=== PATIENT | female | born 1935 | race Caucasian/White ===

== ENCOUNTER 2016-09-16 21:10 | Inpatient (IN) ==
[2016-09-16] MEDS ORDERED: HYDROmorphone 2 MG/1 ML VIAL IV STA (22:23)
[2016-09-16] MEDS ORDERED: PROMETHAZINE 25 MG/1 ML VIAL IM STA (22:23)
[2016-09-16] MEDS ORDERED: PROMETHAZINE 25 MG/1 ML VIAL ONE (22:26)
[2016-09-16] MEDS ORDERED: HYDROmorphone 2 MG/1 ML VIAL ONE (22:27)
--- NOTE | 2016-09-16 22:31 | Emergency Department Note ---
Yajaira Kwong Hilary, am scribing for, and in the presence of, Ed Carroll MD 21:39 . Carly Kwong Hans, MD, personally performed the services described in this documentation, ascribed by Sushma Gates in my presence, and it is both accurate and complete . Arrival - Arrival Chief Complaint: Fall Stated Complaint: fall ED Nursing Triage Note: Pt brought in by EMS with c/o fall tonight about 1hour DRIER TAKE OFF TENDER. Pt states her left hip is hurting. No bruising or obvious deformity noted. Pt rates pain 8/10. Pt was given 4mg zofran and 100mg fentanyl. Mode of Arrival: Stretcher Limitations: No Limitations Source: Patient, RN Notes Reviewed - History of Present Illness HPI Narrative: Pt is a 81 y/o female brought into the ED via EMS for c/o a fall which onset minutes DRIER TAKE OFF TENDER. Pt states that she was getting ready to take a bath and somehow her feet got twisted up and she tripped and fell onto the floor. She has not walked since the fall due to her left hip hurting. She confirms left hip pain and nausea/vomiting but denies syncope or vertigo. Pt was given 4mg Zofran and 100mg Fentanyl. No other complaints or problems stated in the ED. Onset (ago): minute(s) Consistency: constant Severity: severe Severity scale (1-10): 8 Quality: sharp Review of System - Review of System 12 point system: reviewed and no additional remarkable complaints except as stated - Review of System Constitutional: Present: other. Absent: fever Cardiovascular: Absent: syncope Gastrointestinal: Present: nausea, vomiting Musculoskeletal: Present: leg pain (left hip pain) Medical,Surgical,& Family Hx - Medical History Cardio: History of: Hypertension - Social History Smoking Status: Never smoker Frequency of Alcohol Use: None Type of Drug Use: None Marital Status: Lives With:: Alone Functional capacity: independent ambulation Exam Vital Signs: Vital Signs Temperature 97.5 F L 09/16/16 21:20 Pulse Rate 61 09/16/16 21:20 Respiratory Rate 18 09/16/16 21:20 Blood Pressure 157/60 09/16/16 21:20 O2 Sat by Pulse Oximetry 98 09/16/16 21:20 - General General appearance: alert, in no apparent distress - Head Head exam: Present: atraumatic, normocephalic - Eye Eye exam: Present: normal appearance, PERRL, EOMI - ENT ENT exam: Present: mucous membranes moist, TM's normal bilaterally. Absent: mucous membranes dry - Neck Neck exam: Present: full ROM, trachea midline. Absent: tenderness - Chest Chest inspection: Present: symmetric chest wall rise. Absent: tenderness - Respiratory Respiratory exam: Present: normal lung sounds bilaterally. Absent: respiratory distress - Cardiovascular Cardiovascular exam: Present: regular rate, normal rhythm, normal heart sounds. Absent: murmur, rubs, gallop - Abdominal Exam Abdominal exam: Present: soft, normal bowel sounds. Absent: distention, tenderness - Extremities Exam Extremities exam: Present: full ROM. Absent: tenderness, pedal edema - Back Exam Back exam: Present: full ROM. Absent: tenderness - Neurological Exam Neurological exam: Present: alert, oriented X3, CN II-XII intact. Absent: motor sensory deficit - Psychiatric Psychiatric exam: Present: normal affect, normal mood - Skin Skin exam: Present: warm, dry, intact, normal color. Absent: rash Course Course Narrative: This patient was evaluated in the ER with left hip x-ray and CT head as well as lab work, EKG, and chest x-ray. She had an impacted left femoral neck fracture on her left hip x-ray. CT head was negative. EKG showed normal sinus rhythm. Lab work was unrevealing. I discussed her fracture with Dr. Gagnon who agreed to admit her and asked that she be n.p.o. after midnight with plans for repair of her fracture tomorrow. This patient is also seen by Dr. Canelo Sanchez so a consult was placed on her admission orders for Dr. Sanchez to follow her while in the hospital and Dr. Romero is actually on-call this weekend so we will ask him to assume medical care until Dr. Sanchez returns. Disposition Clinical Impression: Fracture of femoral neck, left Case discussed with: patient, patient's family Disposition: Still a Patient Condition: Stable Time of Disposition: 22:31
[2016-09-16 22:34] LABS: Basophils % 0.2 % (0.0-0.8); Eosinophils # 0.1 10*3/uL (0.0-0.87); Eosinophils % 0.9 % (0.00-10.9); Hematocrit 39.3 VOL% (35.7-47.0); Hemoglobin 13.2 GM/DL (12.0-16.0); Immature Granulocytes % 0.7 %; Immature Granulocytes Absolute 0.06 #; Lymphocytes # 1.4 10*3/uL (1.4-4.0); Lymphocytes % 15.8 % (21.3-54.2); Mean Corpuscular HGB Conc 33.6 GM/DL (32-36); Mean Corpuscular Hemoglobin 32 PG (27-34); Mean Corpuscular Volume 93.8 FL (87-102); Mean Platelet Volume 11.1 FL (9.6-12.0); Monocytes # 0.5 10*3/uL (0.11-0.8); Monocytes % 5.9 % (1.7-12.7); Neutrophils # 6.8 10*3/uL (1.4-7.4); Neutrophils % 76.5 % (38.7-73.9); Platelet Count 118 T/CUMM (130-400); Red Blood Count 4.19 MC/CUMM (3.8-5.5); Red Cell Distribution Width 12.2 % (9.3-17.3); White Blood Count 8.9 T/CUMM (4-12)
[2016-09-16 22:43] LABS: PT Patient Result 10.6 SECS
[2016-09-16 22:48] LABS: Calcium 8.6 MG/DL (8.5-10.1); Magnesium 2.2 MG/DL (1.8-2.4); Osmolality,Calculated 283.3 MOS/KG (273-304); Potassium 3.7 MMOL/L (3.5-5.1)
[2016-09-16] MEDS ORDERED: MAGNESIUM HYDROXIDE SUSP 30 ML UDCUP PO PRN (23:48)
[2016-09-16] MEDS ORDERED: PROMETHAZINE 25 MG/1 ML VIAL IM PRN (23:48)
[2016-09-17] MEDS: SODIUM CHLORIDE 0.9% 1,000 ML IV SCH ×3 (00:53→21:00)
--- NOTE | 2016-09-17 07:00 | Orthopedic History & Physical ---
Assessment and Plan (1) Fracture of femoral neck, left Status: Acute Assessment and plan: Left femoral neck fracture: Discussed injury with she and her daughter at the bedside this morning. Due to the alignment of the fracture, I recommended closed reduction percutaneous pinning. Risks and benefits were discussed in detail. We will plan on proceeding with surgery this morning. Risks, alternatives, and benefits to undergoing this procedure were discussed in great detail, the patient voiced understanding desire proceed. Risks discussed included, but were not limited to, bleeding, infection, damage to arteries and nerves, nonunion, malunion, need for revision surgery, as well as medical complications. We will consult pulmonology for medical management as she is a patient of Dr. Sanchez She will likely need swing bed rehab at the time of discharge Current Visit: Yes Qualifiers: Encounter type: initial encounter Fracture type: closed Qualified Code(s) : S72.002A - Fracture of unspecified part of neck of left femur, initial encounter for closed fracture History of Present Illness Chief complaint: left hip pain History of present illness: Ms. Long is a 81 year old female who had a fall yesterday evening. She denies any syncope or presyncopal symptoms, stating that she fell when she "got her feet twisted up" and fell onto her left side. She was brought to the emergency department for evaluation of left-sided hip pain. Radiographic workup was significant for a femoral neck fracture. Patient lives alone as her is . She is a patient of Dr. Sanchez. Home Medications Medication Instructions Recorded Confirmed Type Atenolol 50 mg PO DAILY 09/17/16 09/17/16 History Atorvastatin [Lipitor] 40 mg PO DAILY 09/17/16 09/17/16 History Calcium (Carb)/Vit D 250-125 1 tablet PO BID 09/17/16 09/17/16 History [Oscal 250 + D] Esomeprazole Magnesium [Nexium] 22.3 mg PO DAILY 09/17/16 09/17/16 History Multivitamin [One Daily] 1 each PO DAILY 09/17/16 09/17/16 History Psyllium Husk (with Sugar) 3.4 gm PO BID 09/17/16 09/17/16 History [Metamucil Packet] Valsartan/Hydrochlorothiazide 1 each PO DAILY 09/17/16 09/17/16 History [Valsartan-Hctz 160-12.5 mg Tab] Vit C/Vit E AC/Lut/Copper/Zinc 1 tablet PO BID 09/17/16 09/17/16 History [Preservision Lutein Softgel] Allergies Allergy/AdvReac Type Severity Reaction Status Date / Time No Known Allergies Allergy Unverified 09/16/16 22:48 12 point system: reviewed and no additional remarkable complaints except as stated Medical,Surgical,& Family Hx - Medical History Cardio: History of: Hypertension HEENT: History of: Ear Problem (BILATERAL HEARING AIDES), Eye Problem (MACULAR DEGENERATION) - Surgical History Reproductive Surgeries: Surgical HX of;: Hysterectomy - Family History Family History: Reports;: Family Cancer (FATHER(COLON)), Family Diabetes ( DAUGHTER) - Social History Smoking Status: Never smoker Frequency of Alcohol Use: None Type of Drug Use: None Exam - Constitutional Vitals: Period Temp Pulse Resp BP Sys/Hester Pulse Ox Last 24 Hr 97.1 F-97.9 F 51-94 16-18 140-171/60-74 95-100 Exam: General appearance: no acute distress Head exam: normal inspection Eye exam: EOMI Neck exam: normal inspection Respiratory exam: clear to auscultation bilaterally Cardiovascular exam: regular GI/Abdominal exam: normal bowel sounds Left lower extremity: Hip is externally rotated slightly flexed the knee. She is nontender in the knee ankle and foot. She can wiggle her toes. She has 2+ dorsalis pedis pulse. She extreme pain with any motion of the hip. Results - Labs CBC & BMP: 09/16/16 22:06 09/16/16 22:06 - Diagnostic Findings Procedure: X-ray: image reviewed by me (Valgus impacted fracture of left femoral neck)
--- NOTE | 2016-09-17 07:15 | EKG Report ---
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
[2016-09-17] MEDS: HYDROmorphone 2 MG/1 ML VIAL IV PRN ×2 (07:39→15:50)
[2016-09-17] MEDS: ONDANSETRON 4 MG/2 ML VIAL IV PRN ×3 (07:45→20:59)
--- NOTE | 2016-09-17 08:13 | CT Report ---
CT head/brain wo con Indication: Headache status post fall. Comparison: None. Technique: CT of the brain was performed without administration of intravenous contrast. The CT examination was performed using one or more of the following dose reduction techniques: Automatic exposure control, adjustment of the mA and kV according to patient size, use of acute or iterative reconstruction techniques. Findings: There is no evidence of acute intracranial mass, hemorrhage, or infarction. Generalized cerebral atrophy is present. Areas of decreased attenuation within the periventricular white matter and cerebral white matter are present which could be compatible with microvascular ischemia. The basal cisterns are patent. No significant abnormality is demonstrated to involve the posterior fossa or cerebellum. Orbits and globes demonstrate no evidence of significant pathology. The paranasal sinuses are clear. No significant abnormality is demonstrated to involve the mastoid air cells. The calvarium and overlying soft tissues demonstrate no evidence of acute pathology. Impression: 1. No CT evidence of acute intracranial pathology. 09/17/2016 8:10 AM PROCEDURE INTERPRETED AT [facility] DEPARTMENT OF RADIOLOGY Final Report Signed by: Dr. Julio Wilson
--- NOTE | 2016-09-17 08:13 | XRay Report ---
XR hip 2V LT Indication: Left hip pain status post fall Comparison: None. Technique: AP and lateral images of the left hip were submitted. Findings: Nondisplaced acute fracture of the left femoral neck is demonstrated. No dislocation of the left femoral acetabular joint is present. Imaged bony structure of the left pelvis is intact. Impression: 1. Acute nondisplaced left femoral neck fracture is demonstrated. 09/17/2016 8:10 AM PROCEDURE INTERPRETED AT [facility] DEPARTMENT OF RADIOLOGY Final Report Signed by: Dr. Julio Wilson
--- NOTE | 2016-09-17 08:14 | XRay Report ---
XR chest 1V portable Indication: Chest injury status post fall. History of left hip fracture concurrent injury. Comparison: None. Technique: Portable AP chest was performed. Findings: Heart size is normal. Pulmonary vasculature appears within normal limits. No significant abnormality of the mediastinal contours demonstrated. Lungs are clear. Bones and soft tissues demonstrate no significant abnormalities. Impression: 1. No evidence of acute pathology. 09/17/2016 8:11 AM PROCEDURE INTERPRETED AT [facility] DEPARTMENT OF RADIOLOGY Final Report Signed by: Dr. Julio Wilson
--- NOTE | 2016-09-17 08:47 | Pulmonology Consult Note ---
History of Present Illness Chief complaint: Fractured hip. Surgical clearance. High blood pressure History of present illness: Ms. Long is a 81 year old white female whom I been asked to see for surgical clearance for repair of a left hip fracture. This patient is usually followed by Dr. Canelo Sanchez. He will slat pickler the case on 09/19/2016 This patient was seen with her daughter. Patient's been very active. She mowed the grass yesterday. She got her feet tangled up and fell and fractured her hip. Falls are not a usual problem with this patient. She does have chronic nausea and carsickness on a long-term basis. She has had no syncope. She denies cardiac angina, palpitations, seizures,'s TIA, or bleeding from any site. Allergies. None. Medicines. See below. Past history. Chronic nausea. High blood pressure. Hyperlipidemia. Bilateral hearing aids. Macular degeneration. Previous hysterectomy. Family history. Father had colon cancer. Her daughter had diabetes. Social history. Patient does not use alcohol or tobacco EKG per regular sinus rhythm at 55 bpm. Normal axis. Normal STs and T's. Normal tracing. Chest x-ray. Normal. No heart failure. No infiltrates. Lab. H&H 13.2/39.3. Platelets are 118,000. White blood cell counts 8976.5 segs 15.8 lymphs. INR is 1.0. Electrolytes normal. Creatinine is 0.90 with a BUN of 19. Calcium and magnesium are normal. Urinalysis. Pending Labs been reviewed. Medicines have been reviewed Physical exam. Vital signs. See below Psychiatric. Oriented 3. General. Nauseated Neurologic. Cranial nerves are intact with decreased hearing acuity bilaterally long track motor functions intact Face. Symmetrical. No rash. Salivary glands are normal. No edema of the lips or tongue. Neck. Symmetrical. No meningismus. No masses Lymphatics. No submandibular cervical supraclavicular or epitrochlear adenopathy. Arterial. Good carotid pulses. Upper extremity pulses are palpable. Lower extremity pulses are nonpalpable. No evidence of lower extremity ischemia. Venous exam. Neck and upper extremities are normal. Mild venous stasis of both lower extremities Chest. Clear. No wheeze. No rales. Heart. Regular. No gallop. Abdomen. Nontender. Bowel sounds are present. Extremities. As per orthopedics. Very mild chronic venous stasis about both ankles. Skin of the face and hand showed no cancerous infectious lesions. See extremities. The remainder the physical exam is noncontributory and negative. Impression. 1. Cleared for anesthesia and surgery 2. High blood pressure 3. Hyperlipidemia 4. Long history of recurrent nausea Plan. 1. Dr. Sanchez will slat pickler the case on 09/19/2016. 2. Deep venous thrombophlebitis prevention protocol 3. Attention to nausea in the perioperative period. Home Medications Medication Instructions Recorded Confirmed Type Atenolol 50 mg PO DAILY 09/17/16 09/17/16 History Atorvastatin [Lipitor] 40 mg PO DAILY 09/17/16 09/17/16 History Calcium (Carb)/Vit D 250-125 1 tablet PO BID 09/17/16 09/17/16 History [Oscal 250 + D] Esomeprazole Magnesium [Nexium] 22.3 mg PO DAILY 09/17/16 09/17/16 History Multivitamin [One Daily] 1 each PO DAILY 09/17/16 09/17/16 History Psyllium Husk (with Sugar) 3.4 gm PO BID 09/17/16 09/17/16 History [Metamucil Packet] Valsartan/Hydrochlorothiazide 1 each PO DAILY 09/17/16 09/17/16 History [Valsartan-Hctz 160-12.5 mg Tab] Vit C/Vit E AC/Lut/Copper/Zinc 1 tablet PO BID 09/17/16 09/17/16 History [Preservision Lutein Softgel] Allergies Allergy/AdvReac Type Severity Reaction Status Date / Time No Known Allergies Allergy Unverified 09/16/16 22:48 Exam (Pulmonay) H&P - Constitutional Vitals: Period Temp Pulse Resp BP Sys/Hester Pulse Ox Last 24 Hr 97.1 F-98.5 F 51-94 16-18 140-171/60-78 92-100 Medical,Surgical,& Family Hx - Medical History Cardio: History of: Hypertension HEENT: History of: Ear Problem (BILATERAL HEARING AIDES), Eye Problem (MACULAR DEGENERATION) - Surgical History Reproductive Surgeries: Surgical HX of;: Hysterectomy - Family History Family History: Reports;: Family Cancer (FATHER(COLON)), Family Diabetes ( DAUGHTER) - Social History Smoking Status: Never smoker Frequency of Alcohol Use: None Type of Drug Use: None Results - Labs CBC & BMP: 09/16/16 22:06 09/16/16 22:06
[2016-09-17] MEDS ORDERED: ATENOLOL 50 MG TABLET PO ONE (09:17)
[2016-09-17 10:13] LABS: Apearance,Urine CLEAR (Clear); Bilirubin,Urine Negative (Negative); Blood, Urine Negative (Negative); Glucose,Urine (UA) Negative (Negative); Ketones,Urine Negative (Negative); Mucus,Urine Occasional /LPF (Occasional); Nitrite,Urine Negative (Negative); Protein,Urine Negative; RBC,Urine 5 /HPF (0-4); Urine Color Yellow (Yellow); Urine Specific Gravity 1.014 (1.001-1.035); Urine Urobilinogen < 2.0 EU/DL (0.2-1.0); WBC,Urine 8 /HPF (0-6)
[2016-09-17] MEDS ORDERED: PHENYLEPHRINE 1 MG/10 ML SYRINGE IV ONE (11:02)
[2016-09-17] MEDS ORDERED: PROPOFOL 200 MG/20 ML VIAL IV ONE (11:02)
[2016-09-17] MEDS ORDERED: MAGNESIUM HYDROXIDE SUSP 30 ML UDCUP PO PRN (12:01)
[2016-09-17] MEDS ORDERED: ACETAMINOPHEN 325 MG TABLET PO PRN (12:01)
--- NOTE | 2016-09-17 12:04 | Operative Note ---
Procedure: PREOPERATIVE DIAGNOSIS: MINIMALLY DISPLACED LEFT FEMORAL NECK FRACTURE POSTOPERATIVE DIAGNOSIS: same PROCEDURE: Closed reduction and percutaneous pinning of left femoral neck SURGEON: Stanislaw Gagnon MD. ANESTHESIA: Spinal BLOOD LOSS: 25 cc COMPLICATIONS: None. IMPLANTS: Synthes 7.3 mm titanium cannulated screws. INDICATIONS: Pt is a 81-year-old female with a minimally displaced femoral neck fracture. Risks and benefits to undergoing the procedure were discussed in great detail preoperatively. PROCEDURE: The patient was brought to the operative suite and was placed supine on the operating table. Anesthesia was induced. The left lower extremity was placed in a well-leg anguiano with all bony prominences were well padded. With lower extremity was placed in gentle distraction. The patient received antibiotics preoperatively. The left lower extremity was prepped and draped in usual sterile fashion. A timeout was correctly performed by the operative team. Fluoro was used to localize the starting point. An incision was made on the lateral aspect of the femur. Sharp dissection was carried down through skin and subcutaneous tissues. Bleeders were anticoagulated. 3 guidewires were passed in an inverted triangle fashion. Position was confirmed on AP and lateral views. These were then measured. Screws were placed over the guidewire. The guidewire was removed and screw placement was confirmed video graphically. Once this was completed, the wound was irrigated. The skin was then closed in a layered fashion with kin on the final layer. Sterile dressings were applied. The patient was awakened from anesthesia and transferred to Post Anesthesia Care Unit in stable condition. DISPOSITION: The patient will be transferred to the floor when all criteria are met. The patient will be weight-bear as tolerated on the right lower extremity. The patient will receive routine antibiotics and thromboprophylaxis. Surgeon / Physician: Stanislaw Gagnon Results - Labs CBC & BMP: 09/16/16 22:06 09/16/16 22:06 Discharge Plan - Discharge Medications No Action Multivitamin [One Daily] 1 each PO DAILY Calcium (Carb)/Vit D 250-125 [Oscal 250 + D] 1 tablet PO BID Vit C/Vit E AC/Lut/Copper/Zinc [Preservision Lutein Softgel] 1 tablet PO BID Valsartan/Hydrochlorothiazide [Valsartan-Hctz 160-12.5 mg Tab] 1 each PO DAILY Atenolol 50 mg PO DAILY Psyllium Husk (with Sugar) [Metamucil Packet] 3.4 gm PO BID Atorvastatin [Lipitor] 40 mg PO DAILY Esomeprazole Magnesium [Nexium] 22.3 mg PO DAILY - Follow Up or Referral - Forms/Instructions
[2016-09-17] MEDS ORDERED: MIDAZOLAM 2 MG/2 ML VIAL ONE (12:19)
--- NOTE | 2016-09-17 12:22 | XRay Report ---
XR hip 2V LT Indication: Intraoperative C-arm fluoroscopy. Comparison: None. Technique: A total of 3 images were obtained intraoperatively using C-arm fluoroscopy. Findings: Images were reviewed and deemed satisfactory by the operative physician. Total fluoroscopy time was 55.4 seconds. Impression: 1. C-arm usage as detailed. 09/17/2016 12:18 PM PROCEDURE INTERPRETED AT [facility] DEPARTMENT OF RADIOLOGY Final Report Signed by: Dr. Julio Wilson
--- NOTE | 2016-09-17 12:26 | Anesthesia Post-Op ---
Anesthesia Post OP - Post Ansesthetic Evaluation Patient seen in post op: Yes Resp: within normal limits CV: within normal limits Mental: within normal limits Temp: within normal limits [id number]: within normal limits Nausea and Vomiting: within normal limits Pain: within normal limits
--- NOTE | 2016-09-17 13:11 | XRay Report ---
XR hip 1V LT Indication: Surgical repair of left hip. Comparison: Left hip x-ray 09/16/2016 Technique: AP and lateral images of the left hip were submitted. Findings: 3 cannulated lag screws been placed stabilizing the femoral neck fracture previously demonstrated. Fracture fragments are in anatomic position. Impression: 1. Evidence of recent surgical repair of left femoral neck fracture. 09/17/2016 1:07 PM PROCEDURE INTERPRETED AT [facility] DEPARTMENT OF RADIOLOGY Final Report Signed by: Dr. Julio Wilson
[2016-09-17] MEDS: ACETAMINOPHEN 500 MG TABLET PO SCH ×2 (16:34→22:11)
[2016-09-18 02:47] LABS: Basophils % 0.3 % (0.0-0.8); Eosinophils # 0.2 10*3/uL (0.0-0.87); Eosinophils % 3.4 % (0.00-10.9); Hemoglobin 11.3 GM/DL (12.0-16.0); Immature Granulocytes % 0.3 %; Immature Granulocytes Absolute 0.02 #; Lymphocytes # 1.2 10*3/uL (1.4-4.0); Lymphocytes % 18.9 % (21.3-54.2); Mean Corpuscular HGB Conc 34.2 GM/DL (32-36); Mean Corpuscular Hemoglobin 32 PG (27-34); Mean Corpuscular Volume 94.6 FL (87-102); Mean Platelet Volume 11.3 FL (9.6-12.0); Monocytes # 0.5 10*3/uL (0.11-0.8); Monocytes % 7.8 % (1.7-12.7); Neutrophils # 4.5 10*3/uL (1.4-7.4); Neutrophils % 69.3 % (38.7-73.9); Platelet Count 97 T/CUMM (130-400); Red Blood Count 3.49 MC/CUMM (3.8-5.5); Red Cell Distribution Width 12.4 % (9.3-17.3); White Blood Count 6.5 T/CUMM (4-12)
[2016-09-18 03:13] LABS: Osmolality,Calculated 283.1 MOS/KG (273-304); Potassium 3.5 MMOL/L (3.5-5.1)
[2016-09-18] MEDS: SODIUM CHLORIDE 0.9% 1,000 ML IV SCH ×3 (03:29→20:15)
[2016-09-18] MEDS: ACETAMINOPHEN 500 MG TABLET PO SCH ×2 (04:26→10:14)
[2016-09-18] MEDS: ENOXAPARIN 40 MG/0.4 ML SYRINGE SUBCUT SCH (05:43)
--- NOTE | 2016-09-18 09:08 | Orthopedic Progress Note ---
Assessment and Plan (1) Fracture of femoral neck, left Status: Acute Assessment and plan: Left hip pinning Discontinue Youssef IV fluids DVT prophylaxis Begin therapy today, weight-bear as tolerated Discharge planning We will transfer patient care to Dr. Barrera tomorrow, this was explained to the patient and family this morning Current Visit: Yes Qualifiers: Encounter type: initial encounter Fracture type: closed Qualified Code(s) : S72.002A - Fracture of unspecified part of neck of left femur, initial encounter for closed fracture Orthopedics - Subjective Interval history: Patient still complains of pain in the left hip. No acute events overnight. On exam, her dressings clean and dry, she is neurovascularly intact. Exam - Constitutional Vitals: Period Temp Pulse Resp BP Sys/Hester Pulse Ox Last 24 Hr 97.1 F-99.3 F 50-65 16-20 113-162/49-84 90-100 Results - Labs CBC & BMP: 09/18/16 02:18 09/18/16 02:18
--- NOTE | 2016-09-18 09:43 | Pulmonology Progress Note ---
Pulmonary - PN: Subj Interval history: This is a 82-year-old white female whom I saw in consultation on 09/17/2016. My impressions were. 1. Cleared for anesthesia and surgery 2. High blood pressure 3. Hyperlipidemia 4. Long history of recurrent nausea 09/18/2016. Patient did well with surgery. Medicines have controlled her nausea. She is seen along with her daughter. There are no new complaints and there are no new requests. Electrolytes are normal. Creatinine is 0.8 with a BUN of 14. H&H 11.3/33.0. White count is 6500 with a normal differential and platelets are 97,000. Urinalysis is normal. Physical exam. Vital signs. See below. Afebrile Cranial nerves are intact with marked decreased hearing acuity. Patient moves all fours. Face. Symmetrical. No swelling of the lips or tongue. Neck. Symmetrical. No meningismus. Chest. Wheeze free. Heart. No gallop Abdomen. Nondistended. Rare bowel sounds. Extremities. Nothing to suggest deep venous thrombophlebitis The remainder the physical exam is negative Plan. 09/17/[address] Sanchez will pickling grader the case on 09/19/2016. 2. Deep venous thrombophlebitis prevention protocol 3. Attention to nausea in the perioperative period. 09/18/2016. 1. Dr. lisa Sanchez will pickling grader tomorrow. 2. No changes have been made in this patient's treatment regimen Exam (Progress Note) - Constitutional Vitals: Period Temp Pulse Resp BP Sys/Hester Pulse Ox Last 24 Hr 97.1 F-99.3 F 50-65 16-20 113-162/49-84 90-100 Results - Labs CBC & BMP: 09/18/16 02:18 09/18/16 02:18
[2016-09-19] MEDS: SODIUM CHLORIDE 0.9% 1,000 ML IV SCH ×2 (03:10→13:25)
[2016-09-19] MEDS: ENOXAPARIN 40 MG/0.4 ML SYRINGE SUBCUT SCH (06:11)
[2016-09-19 06:26] LABS: Basophils % 0.5 % (0.0-0.8); Eosinophils # 0.3 10*3/uL (0.0-0.87); Eosinophils % 4.5 % (0.00-10.9); Hematocrit 31.9 VOL% (35.7-47.0); Hemoglobin 10.9 GM/DL (12.0-16.0); Immature Granulocytes % 0.5 %; Immature Granulocytes Absolute 0.03 #; Lymphocytes % 16.8 % (21.3-54.2); Mean Corpuscular HGB Conc 34.2 GM/DL (32-36); Mean Corpuscular Hemoglobin 32 PG (27-34); Mean Corpuscular Volume 93.5 FL (87-102); Mean Platelet Volume 11.5 FL (9.6-12.0); Monocytes # 0.4 10*3/uL (0.11-0.8); Monocytes % 6.8 % (1.7-12.7); Neutrophils # 4.1 10*3/uL (1.4-7.4); Neutrophils % 70.9 % (38.7-73.9); Platelet Count 100 T/CUMM (130-400); Red Blood Count 3.41 MC/CUMM (3.8-5.5); Red Cell Distribution Width 12.4 % (9.3-17.3); White Blood Count 5.8 T/CUMM (4-12)
[2016-09-19 07:09] LABS: Hypochromasia Slight; Platelet Estimate Decreased
--- NOTE | 2016-09-19 08:39 | Orthopedic Progress Note ---
Orthopedics - Subjective Interval history: Her left hip is better. She is complaining of being sore everywhere. Left lower extremity is neurovascularly intact. Her dressing is clean, dry and intact. Plan: Mobilize with physical therapy. Discharge planning. She can be discharged to swing bed when available. Exam - Constitutional Vitals: Period Temp Pulse Resp BP Sys/Hester Pulse Ox Last 24 Hr 98.9 F-100.0 F 57-69 16-20 125-148/52-76 89-93 Results - Labs CBC & BMP: 09/19/16 04:37 09/18/16 02:18
--- NOTE | 2016-09-19 09:04 | Pulmonology Progress Note ---
Pulmonary - PN: Subj Interval history: This 81-year-old white female is a patient that I follow for hypertension, gastroesophageal reflux disease, and hyperlipidemia. I had followed her along with her who had pulmonary issues. He a year or so back. She has been very active and in pretty good physical condition. She just called her slipper on the rug and fell and broke her left hip. She is starting to do physical therapy now. Plans are for her to go to a swing bed in the next day or 2. Exam (Progress Note) - Constitutional Vitals: Period Temp Pulse Resp BP Sys/Hester Pulse Ox Last 24 Hr 98.9 F-100.0 F 57-69 16-20 125-148/52-76 89-93 Exam: Vital signs normal. Pupils react to light. Throat is clear. Neck supple no bruits. Chest is clear equal breath sounds. Heart normal rate and rhythm no murmurs. Abdomen soft no masses. Extremities no clubbing cyanosis or edema. Tenderness over the left hip. It is bandaged. Calves are nontender. Results - Labs CBC & BMP: 09/19/16 04:37 09/18/16 02:18 Lab Results: I have reviewed the past 24 hour labs Assessment and Plan (1) Essential hypertension Status: Acute Assessment and plan: Blood pressure looks okay. Needs to resume her blood pressure medications. Current Visit: Yes (2) Hyperlipidemia Status: Acute Assessment and plan: She takes statin agents regularly. Current Visit: Yes (3) Gastroesophageal reflux disease Status: Acute Assessment and plan: She is chronically on a proton pump inhibitor. No symptoms today. Current Visit: Yes (4) Fracture of femoral neck, left Status: Acute Assessment and plan: 2 days postop repair of left hip fracture. Having some pain about as expected. Participating in physical therapy. She was very active prior to the fall. Should be ready for swing bed any time. Current Visit: Yes Qualifiers: Encounter type: initial encounter Fracture type: closed Qualified Code(s) : S72.002A - Fracture of unspecified part of neck of left femur, initial encounter for closed fracture Specialty Discharge - Follow Up or Referrals Follow up with: Martin Barrera Jr., MD [Physician] -
--- NOTE | 2016-09-19 18:43 | Discharge Summary ---
Hospital Course - Hospital Course Hospital Course: Sujatha Long was admitted with a left impacted femoral neck fracture. She underwent urgent pinning by Dr. Stanislaw Gagnon. She received perioperative DVT and antimicrobial prophylaxis. She received physical therapy. Her dressing is clean, dry and intact. Left lower extremity is neurovascularly unchanged. Discharge instructions were reviewed. She is to be discharged to [facility] bed in stable condition. Specialty Discharge - Follow Up or Referrals Follow up with: Martin Barrera Jr., MD [Physician] - 10/18/16 8:20 am Discharge Plan - Discharge Data Disposition: Disch/Xfer to Snf Condition at Discharge: Stable Discharge Diet: advance to your usual diet Activity: ambulate only with your walker Hygiene: may shower Weight Bearing at Discharge: weight bear as tolerated Driving: not until seen by doctor - Discharge Medications New RX: Enoxaparin [Lovenox] 40 mg SUBCUT Q24H syringe RX: HYDROcodone/ACETAMIN 7.5-325 [[place] 7.5-325] 2 tablet PO Q4H PRN tablet PRN Reason: Pain Severe (8-10) RX: HYDROcodone/ACETAMIN 7.5-325 [[place] 7.5-325] 1 tablet PO Q4H PRN tablet PRN Reason: Pain Moderate (4-7) Continue RX: Multivitamin [One Daily] 1 each PO DAILY RX: Calcium (Carb)/Vit D 250-125 [Oscal 250 + D] 1 tablet PO BID RX: Vit C/Vit E AC/Lut/Copper/Zinc [Preservision Lutein Softgel] 1 tablet PO BID RX: Valsartan/Hydrochlorothiazide [Valsartan-Hctz 160-12.5 mg Tab] 1 each PO DAILY RX: Atenolol 50 mg PO DAILY RX: Psyllium Husk (with Sugar) [Metamucil Packet] 3.4 gm PO BID RX: Atorvastatin [Lipitor] 40 mg PO DAILY RX: Esomeprazole Magnesium [Nexium] 22.3 mg PO DAILY - Follow Up or Referral Follow Up: Martin Barrera Jr., MD [Physician] - 10/18/16 8:20 am - Forms/Instructions Additional Discharge Instructions: Daily dry dressing changes. Arrange for walker and bedside commode for home use. Wear ALISHA hose for 1 month. Follow-up appointment in 4 weeks. Discontinue kin and Steri-Strip wound on September 26, 2016. Prescription for Plevna 5 was written. Lovenox for 28 days. Exam - Constitutional Vitals: Period Temp Pulse Resp BP Sys/Hester Pulse Ox Last 24 Hr 98.3 F-100.0 F 64-69 16-20 125-158/52-74 90-95 Discharge Results Procedures and tests throughout hospitalization: Pending Orders 09/20/16 04:00 Comp Blood Count Auto Diff IN AM Labs on day of discharge: Labs from last 24 hours 09/19/16 09/19/16 06:50 04:37 WBC 5.8 RBC 3.41 L Hgb 10.9 L Hct 31.9 L MCV 93.5 MCH 32 MCHC 34.2 RDW 12.4 Plt Count 100 L MPV 11.5 Neut % (Auto) 70.9 Lymph % (Auto) 16.8 L Dale % (Auto) 6.8 Eos % (Auto) 4.5 Baso % (Auto) 0.5 Neut # (Auto) 4.1 Lymph # (Auto) 1.0 L Dale # (Auto) 0.4 Eos # (Auto) 0.3 Baso # (Auto) 0.0 Immature Gran % 0.5 Nucleated RBC % 0.0 Immature Gran # 0.03 Nucleated RBCs # 0.00 Platelet Estimate Decreased Immature Plt Fraction 0.0 Hypochromasia Slight POC Glucose 101 DS: Provider Date of admission: 09/16/16 22:27 Primary care physician: . No PCP Attending physician on admission: Stanislaw Gagnon MD Consults: 09/16/16 23:48 Consult to Anesthesiology [CONS] Routine Consulting Provider: Reason for Anesthesiology: Pre-op Clearance Consult to Physician [CONS] Routine Comment: established patient Consulting Provider: Caenlo Sanchez Consulting Provider Notified: Yes When should Consulting Provider be notified: In am Person Notified: DR MARTINEZ Date Notified: 09/17/16 Time Notified: 07:34 Consult Notification Comment: Dr. Sanchez saw 09/19/16 09/17/16 12:01 Consult to Physical Therapy [CONS] Routine Reason for Physical Therapy: Evaluate and Treat Start Therapy: Tomorrow Consult Comment: wbat LLE 09/17/16 12:02 Consult to Case Mgmt/Social Srvs [CONS] Routine Reason for Case Mgmt/Social Srvs: Home Health Rehab Equipment Consult Comment: BEDSIDE COMMODE, WALKER Discharging clinician: Martin Barrera Jr., Expected date of discharge: 09/21/16
[2016-09-19] MEDS: ATORVASTATIN 40 MG TABLET PO SCH (20:20)
[2016-09-20] MEDS: SODIUM CHLORIDE 0.9% 1,000 ML IV SCH ×3 (00:35→18:56)
[2016-09-20 05:13] LABS: Basophils % 0.4 % (0.0-0.8); Eosinophils # 0.2 10*3/uL (0.0-0.87); Eosinophils % 5.2 % (0.00-10.9); Hemoglobin 11.1 GM/DL (12.0-16.0); Immature Granulocytes % 0.4 %; Immature Granulocytes Absolute 0.02 #; Lymphocytes % 21.6 % (21.3-54.2); Mean Corpuscular HGB Conc 34.7 GM/DL (32-36); Mean Corpuscular Hemoglobin 32 PG (27-34); Mean Corpuscular Volume 92.8 FL (87-102); Mean Platelet Volume 10.8 FL (9.6-12.0); Monocytes # 0.3 10*3/uL (0.11-0.8); Monocytes % 6.3 % (1.7-12.7); Neutrophils # 3.1 10*3/uL (1.4-7.4); Neutrophils % 66.1 % (38.7-73.9); Platelet Count 106 T/CUMM (130-400); Red Blood Count 3.45 MC/CUMM (3.8-5.5); Red Cell Distribution Width 12.2 % (9.3-17.3); White Blood Count 4.6 T/CUMM (4-12)
[2016-09-20] MEDS: ENOXAPARIN 40 MG/0.4 ML SYRINGE SUBCUT SCH (05:19)
--- NOTE | 2016-09-20 07:02 | Orthopedic Progress Note ---
Orthopedics - Subjective Interval history: Mrs. Long was able to walk around the room yesterday. She still complaining of soreness everywhere. Dressing clean, dry and intact. Left lower extremities neurovascularly unchanged. Plan: Continue physical therapy. May be discharged when bed available. Exam - Constitutional Vitals: Period Temp Pulse Resp BP Sys/Hester Pulse Ox Last 24 Hr 98.1 F-99.4 F 64-70 16-20 140-161/62-75 90-95 Results - Labs CBC & BMP: 09/20/16 04:42 09/18/16 02:18 Specialty Discharge - Follow Up or Referrals Follow up with: Martin Barrera Jr., MD [Physician] - 10/18/16 8:20 am
--- NOTE | 2016-09-20 08:34 | Pulmonology Progress Note ---
Pulmonary - PN: Subj Interval history: This 81-year-old white female is a patient that I follow for hypertension, gastroesophageal reflux disease, and hyperlipidemia. I had followed her along with her who had pulmonary issues. He a year or so back. She has been very active and in pretty good physical condition. She just called her slipper on the rug and fell and broke her left hip. She is starting to do physical therapy now. Plans are for her to go to a swing bed in the next day or 2. 09/20/2016 patient is able to walk with some pain. Arrangements being made for aftercare. Stable from medical standpoint. Exam (Progress Note) - Constitutional Vitals: Period Temp Pulse Resp BP Sys/Hester Pulse Ox Last 24 Hr 98.1 F-99.4 F 64-70 16-20 142-161/59-75 90-95 Exam: Vital signs normal. Pupils react to light. Throat is clear. Neck supple no bruits. Chest is clear equal breath sounds. Heart normal rate and rhythm no murmurs. Abdomen soft no masses. Extremities no clubbing cyanosis or edema. Tenderness over the left hip. It is bandaged. Calves are nontender. Results - Labs CBC & BMP: 09/20/16 04:42 09/18/16 02:18 Lab Results: I have reviewed the past 24 hour labs Assessment and Plan (1) Essential hypertension Status: Acute Assessment and plan: Blood pressure looks okay. Needs to resume her blood pressure medications. 09/20/2016 blood pressure well controlled. Now on her home medicines. Current Visit: Yes (2) Hyperlipidemia Status: Acute Assessment and plan: She takes statin agents regularly. Current Visit: Yes (3) Gastroesophageal reflux disease Status: Acute Assessment and plan: She is chronically on a proton pump inhibitor. No symptoms today. 09/20/2016 no reflux symptoms. Current Visit: Yes (4) Fracture of femoral neck, left Status: Acute Assessment and plan: 2 days postop repair of left hip fracture. Having some pain about as expected. Participating in physical therapy. She was very active prior to the fall. Should be ready for swing bed any time. 09/20/2016 participating in physical therapy. Await word on next location of treatment. Current Visit: Yes Qualifiers: Encounter type: initial encounter Fracture type: closed Qualified Code(s) : S72.002A - Fracture of unspecified part of neck of left femur, initial encounter for closed fracture Specialty Discharge - Follow Up or Referrals Follow up with: Martin Barrera Jr., MD [Physician] - 10/18/16 8:20 am
[2016-09-20] MEDS: ATENOLOL 50 MG TABLET PO SCH (09:03)
[2016-09-20] MEDS: VALSARTAN/HCTZ 160-12.5 MG TABLET PO SCH (09:03)
[2016-09-20] MEDS ORDERED: TUBERCULIN SKIN TEST 0.1 ML SYRINGE INTRADERM ONE (12:39)
--- NOTE | 2016-09-20 12:41 | Case Mgmt Physician Query Form ---
TB Signs and Symptoms Screening ([place]) INSTRUCTIONS: To be completed annually on residents/staff with a significant Tuberculin Skin Test (TST) upon admission/hire or a prior significant TST. To be completed on all staff at hire. Please respond to each listed symptom with an (X) in either the "YES" or "NO" box. Do you currently have any of the following symptoms: YES NO ( ) (x ) A cough If yes, is it: ( ) Productive ( ) Non- productive ( ) ( x) Hemoptysis (spitting up blood) ( ) (x ) Chest pains ( ) (x ) Weight Loss ( ) (x ) Fever ( ) (x ) Night Sweats ( ) (x ) Weakness ( ) ( x) Loss of Appetite ( ) (x ) Difficulty Breathing If you answered YES" to any of the above questions, how long have symptoms been present? Comments: If you have any questions, please contact me. Thank you, Luci Mesa RN, Office : [phone] Email : [email or web address]
[2016-09-20] MEDS: ATORVASTATIN 40 MG TABLET PO SCH (20:49)
[2016-09-21] MEDS: ENOXAPARIN 40 MG/0.4 ML SYRINGE SUBCUT SCH (06:04)
--- NOTE | 2016-09-21 08:02 | Pulmonology Progress Note ---
Pulmonary - PN: Subj Interval history: This 81-year-old white female is a patient that I follow for hypertension, gastroesophageal reflux disease, and hyperlipidemia. I had followed her along with her who had pulmonary issues. He a year or so back. She has been very active and in pretty good physical condition. She just called her slipper on the rug and fell and broke her left hip. She is starting to do physical therapy now. Plans are for her to go to a swing bed in the next day or 2. 09/20/2016 patient is able to walk with some pain. Arrangements being made for aftercare. Stable from medical standpoint. 09/21/16 patient participating in physical therapy. No new medical problems. Going to [facility] swing bed. Exam (Progress Note) - Constitutional Vitals: Period Temp Pulse Resp BP Sys/Hester Pulse Ox Last 24 Hr 98.2 F-99.8 F 57-70 16-20 112-161/55-80 93-95 Exam: Vital signs normal. Pupils react to light. Throat is clear. Neck supple no bruits. Chest is clear equal breath sounds. Heart normal rate and rhythm no murmurs. Abdomen soft no masses. Extremities no clubbing cyanosis or edema. Tenderness over the left hip. It is bandaged. Calves are nontender. Results - Labs CBC & BMP: 09/20/16 04:42 09/18/16 02:18 Lab Results: I have reviewed the past 24 hour labs Assessment and Plan (1) Essential hypertension Status: Acute Assessment and plan: Blood pressure looks okay. Needs to resume her blood pressure medications. 09/20/2016 blood pressure well controlled. Now on her home medicines. 09/21/16 blood pressure acceptable on her home medications. She should continue those post discharge Current Visit: Yes (2) Hyperlipidemia Status: Acute Assessment and plan: She takes statin agents regularly. Current Visit: Yes (3) Gastroesophageal reflux disease Status: Acute Assessment and plan: She is chronically on a proton pump inhibitor. No symptoms today. 09/20/2016 no reflux symptoms. Current Visit: Yes (4) Fracture of femoral neck, left Status: Acute Assessment and plan: 2 days postop repair of left hip fracture. Having some pain about as expected. Participating in physical therapy. She was very active prior to the fall. Should be ready for swing bed any time. 09/20/2016 participating in physical therapy. Await word on next location of treatment. 09/21/16 status post repair, tolerating rehab. Current Visit: Yes Qualifiers: Encounter type: initial encounter Fracture type: closed Qualified Code(s) : S72.002A - Fracture of unspecified part of neck of left femur, initial encounter for closed fracture Specialty Discharge - Follow Up or Referrals Follow up with: Martin Barrera Jr., MD [Physician] - 10/18/16 8:20 am
[2016-09-21] MEDS: ATENOLOL 50 MG TABLET PO SCH (08:16)
[2016-09-21] MEDS: VALSARTAN/HCTZ 160-12.5 MG TABLET PO SCH (08:16)
[2016-09-21 11:46] VITALS: BP 124/62
== END 2016-09-21 11:52 | DRG 482 ==
LOC: EDUNIT# → EDBD → N.ED 21:10 → N.EDINP 22:27 → N.3E 23:14
PROVIDERS: ADMIT Orthopaedic Surgery; ATTEND Orthopaedic Surgery

== ENCOUNTER 2020-06-15 00:56 | Observation (INO) ==
[2020-06-15 01:16] LABS: Basophils % 0.2 % (0.0-0.8); Eosinophils # 0.3 10*3/uL (0.0-0.87); Eosinophils % 3.1 % (0.00-10.9); Hematocrit 37.8 VOL% (35.7-47.0); Hemoglobin 12.9 GM/DL (12.0-16.0); Immature Granulocytes % 0.3 %; Immature Granulocytes Absolute 0.03 #; Lymphocytes # 0.9 10*3/uL (1.4-4.0); Lymphocytes % 9.6 % (21.3-54.2); Mean Corpuscular HGB Conc 34.1 GM/DL (32-36); Mean Platelet Volume 10.4 FL (9.6-12.0); Monocytes % 5.2 % (1.7-12.7); Neutrophils % 81.6 % (38.7-73.9); Platelet Count 134 T/CUMM (130-400); Red Blood Count 3.98 MC/CUMM (3.8-5.5); Red Cell Distribution Width 12.8 % (9.3-17.3)
[2020-06-15] MEDS ORDERED: DILTIAZEM 50 MG/10 ML VIAL IV STA ×2 (01:19→02:13)
[2020-06-15] MEDS ORDERED: ASPIRIN 325 MG TABLET PO STA (01:19)
[2020-06-15] MEDS ORDERED: DILTIAZEM 100 MG VIAL.ADD IV ONE (01:20)
[2020-06-15] MEDS ORDERED: ENOXAPARIN 100 MG/ML SYRINGE SUBCUT STA (01:29)
[2020-06-15] MEDS ORDERED: DILTIAZEM INJ 100 MG in SODIUM CHLORIDE 0.9% 100 ML IV SCH (01:30)
[2020-06-15 01:43] LABS: Albumin 3.9 G/DL (3.4-5.0); Osmolality,Calculated 278.5 MOS/KG (273-304); Potassium 3.3 MMOL/L (3.5-5.1); Total Protein 6.8 G/DL (6.4-8.2)
[2020-06-15] MEDS ORDERED: POTASSIUM CHLORIDE 20 MEQ TABLET PO STA (01:45)
[2020-06-15 01:48] LABS: INR 1.1
[2020-06-15 01:50] LABS: Thyroid Stimulating Hormone 1.79 uIU/ml (0.358-3.74)
[2020-06-15 02:43] LABS: Bilirubin,Urine Negative (Negative); Blood, Urine Negative (Negative); Glucose,Urine (UA) Negative (Negative); Hyaline Casts,Urine 1 /LPF (0-3); Ketones,Urine 20 mg/dL (Negative); Nitrite,Urine Negative (Negative); Protein,Urine 30 MG/DL; Urine Appearance CLEAR (Clear); Urine Color Straw (Yellow); Urine Specific Gravity 1.004 (1.001-1.035); Urine Urobilinogen < 2.0 EU/DL (0.2-1.0); WBC,Urine 1 /HPF (0-6)
[2020-06-15 04:13] LABS: Platelet Estimate Adequate
[2020-06-15] MEDS ORDERED: MORPHINE 4 MG/1 ML VIAL IV PRN (12:47)
[2020-06-15] MEDS ORDERED: ACETAMINOPHEN 325 MG TABLET PO PRN (12:47)
[2020-06-15] MEDS ORDERED: SODIUM CHLORIDE 0.9% 1,000 ML IV SCH (12:47)
[2020-06-15] MEDS ORDERED: ONDANSETRON 4 MG/2 ML VIAL IV PRN (12:47)
[2020-06-15] MEDS ORDERED: ENOXAPARIN 60 MG/0.6 ML SYRINGE SUBCUT SCH (13:00)
[2020-06-15] MEDS: carvediloL 6.25 MG TABLET PO SCH ×2 (15:06→21:00)
[2020-06-15] MEDS: DOCUSATE SODIUM 100 MG CAPSULE PO SCH ×2 (15:06→20:50)
[2020-06-15] MEDS: PANTOPRAZOLE 40 MG TABLET PO SCH (15:06)
[2020-06-15] MEDS: ASCORBIC ACID 500 MG TABLET PO SCH ×2 (15:06→20:51)
[2020-06-15] MEDS: cefTRIAXone 1,000 MG in SODIUM CHLORIDE 0.9% 100 ML IV SCH (15:40)
[2020-06-15] MEDS: APIXABAN 5 MG TABLET PO SCH (20:51)
[2020-06-16 06:56] LABS: Basophils % 0.5 % (0.0-0.8); Eosinophils # 0.2 10*3/uL (0.0-0.87); Eosinophils % 5.9 % (0.00-10.9); Hematocrit 34.7 VOL% (35.7-47.0); Hemoglobin 11.4 GM/DL (12.0-16.0); Immature Granulocytes % 0.3 %; Immature Granulocytes Absolute 0.01 #; Lymphocytes # 0.7 10*3/uL (1.4-4.0); Lymphocytes % 18.6 % (21.3-54.2); Mean Corpuscular HGB Conc 32.9 GM/DL (32-36); Mean Corpuscular Volume 96.7 FL (87-102); Mean Platelet Volume 10.7 FL (9.6-12.0); Monocytes % 8.4 % (1.7-12.7); Neutrophils % 66.3 % (38.7-73.9); Platelet Count 137 T/CUMM (130-400); Red Blood Count 3.59 MC/CUMM (3.8-5.5); Red Cell Distribution Width 12.7 % (9.3-17.3); White Blood Count 3.9 T/CUMM (4-12)
[2020-06-16 07:19] LABS: Albumin 2.9 G/DL (3.4-5.0); Bilirubin,Total 0.8 MG/DL (0.2-1.0); Calcium 8.7 MG/DL (8.5-10.1); Osmolality,Calculated 277.5 MOS/KG (273-304); Total Protein 6.2 G/DL (6.4-8.2)
[2020-06-16 07:22] LABS: Calcium 8.8 MG/DL (8.5-10.1); Osmolality,Calculated 277.5 MOS/KG (273-304); Potassium 3.9 MMOL/L (3.5-5.1)
[2020-06-16] MEDS ORDERED: ATORVASTATIN 20 MG TABLET PO SCH (09:00)
[2020-06-16] MEDS: DOCUSATE SODIUM 100 MG CAPSULE PO SCH (09:32)
[2020-06-16] MEDS: APIXABAN 5 MG TABLET PO SCH (09:32)
[2020-06-16] MEDS: carvediloL 6.25 MG TABLET PO SCH (09:32)
[2020-06-16] MEDS: ASCORBIC ACID 500 MG TABLET PO SCH (09:32)
[2020-06-16] MEDS: PANTOPRAZOLE 40 MG TABLET PO SCH (09:33)
[2020-06-16] MEDS ORDERED: traZODone 50 MG TABLET PO PRN (12:07)
[2020-06-16 14:22] VITALS: BP 128/59
[2020-06-16] MEDS: cefTRIAXone 1,000 MG in SODIUM CHLORIDE 0.9% 100 ML IV SCH (14:42)
[2020-06-17] MEDS ORDERED: ASPIRIN EC 81 MG TABLET PO SCH (09:00)
== END 2020-06-16 16:40 | disposition home or self-care (01) ==
LOC: N.EDINP 00:56 → N.ED 00:56 → N.TELEN 12:25
PROVIDERS: ADMIT Emergency Medicine; ATTEND Emergency Medicine

== ENCOUNTER 2020-09-07 05:45 | Inpatient (IN) ==
[2020-09-07] MEDS ORDERED: VANCOMYCIN INJ 1,000 MG in SODIUM CHLORIDE 0.9% 250 ML IV ONE (06:00)
[2020-09-07] MEDS: LACTATED RINGERS 1,000 ML IV SCH ×3 (07:19→13:36)
[2020-09-07] MEDS ORDERED: SCOPOLAMINE 1.5 MG PATCH TRANSDERM ONE (08:04)
[2020-09-07] MEDS ORDERED: DEXMEDETOMIDINE 200 MCG/2 ML VIAL ONE (08:48)
[2020-09-07] MEDS ORDERED: GLYCOPYRROLATE 0.4 MG/2 ML VIAL ONE (08:48)
[2020-09-07] MEDS ORDERED: BUPIVACAINE SPINAL 0.75% 2 ML AMP SPINAL ONE (08:48)
[2020-09-07] MEDS ORDERED: DEXAMETHASONE 4 MG/1 ML VIAL ONE (08:52)
[2020-09-07] MEDS ORDERED: BUPIVACAINE MPF 0.25% 30 ML VIAL ONE (08:52)
[2020-09-07] MEDS ORDERED: traZODone 50 MG TABLET PO PRN (09:53)
[2020-09-07] MEDS ORDERED: ONDANSETRON 4 MG/2 ML VIAL ONE (09:55)
[2020-09-07] MEDS ORDERED: MORPHINE 2 MG/1 ML SYRINGE IV PRN ×2 (09:55)
[2020-09-07] MEDS ORDERED: TRANEXAMIC ACID 1,000 MG/10 ML VIAL ONE (10:15)
[2020-09-07] MEDS ORDERED: BACITRACIN OINT 0.9 GM PACK TOP ONE (10:54)
[2020-09-07] MEDS ORDERED: LACTATED RINGERS 1,000 ML IV ONE (10:55)
[2020-09-07] MEDS ORDERED: PHENYLEPHRINE 1 MG/10 ML SYRINGE IV ONE (11:01)
[2020-09-07 11:48] LABS: Bilirubin,Urine Negative (Negative); Blood, Urine Negative (Negative); Glucose,Urine (UA) Negative (Negative); Ketones,Urine Negative (Negative); Nitrite,Urine Negative (Negative); Protein,Urine Negative; RBC,Urine 1 /HPF (0-4); Urine Appearance CLEAR (Clear); Urine Color Straw (Yellow); Urine Specific Gravity 1.008 (1.001-1.035); Urine Urobilinogen < 2.0 EU/DL (0.2-1.0)
[2020-09-07] MEDS: ONDANSETRON 4 MG/2 ML VIAL IV PRN ×2 (13:10→22:26)
[2020-09-07] MEDS: KETOROLAC 15 MG/1 ML VIAL IV SCH ×3 (13:36→22:24)
[2020-09-07] MEDS ORDERED: PROMETHAZINE 25 MG/1 ML VIAL IM PRN (14:59)
[2020-09-07] MEDS ORDERED: APIXABAN 2.5 MG TABLET PO SCH (21:00)
[2020-09-07] MEDS: ASCORBIC ACID 500 MG TABLET PO SCH (21:10)
[2020-09-07] MEDS: carvediloL 6.25 MG TABLET PO SCH (21:10)
[2020-09-07] MEDS: MULTIVITAMIN (OCUVITE) TABLET PO SCH (21:10)
[2020-09-08] MEDS: LACTATED RINGERS 1,000 ML IV SCH ×4 (02:15→18:28)
[2020-09-08] MEDS: KETOROLAC 15 MG/1 ML VIAL IV SCH ×2 (03:29→09:15)
[2020-09-08 05:29] LABS: Hematocrit 19.8 VOL% (35.7-47.0); Immature Granulocytes % 0.5 %; Immature Granulocytes Absolute 0.04 #; Lymphocytes # 0.9 10*3/uL (1.4-4.0); Lymphocytes % 11.8 % (21.3-54.2); Mean Corpuscular HGB Conc 30.8 GM/DL (32-36); Mean Corpuscular Volume 92.5 FL (87-102); Mean Platelet Volume 10.7 FL (9.6-12.0); Monocytes % 10.8 % (1.7-12.7); Neutrophils % 76.9 % (38.7-73.9); Platelet Count 145 T/CUMM (130-400); Red Blood Count 2.14 MC/CUMM (3.8-5.5); Red Cell Distribution Width 12.8 % (9.3-17.3); White Blood Count 7.6 T/CUMM (4-12)
[2020-09-08 05:34] LABS: Hemoglobin 6.1 GM/DL (12.0-16.0)
[2020-09-08] MEDS ORDERED: SODIUM CHLORIDE 0.9% 1,000 ML IV PRN (05:47)
[2020-09-08] MEDS ORDERED: FUROSEMIDE 20 MG/2 ML VIAL IV ONE ×2 (05:48→12:00)
[2020-09-08 05:54] LABS: Calcium 8.1 MG/DL (8.5-10.1); Osmolality,Calculated 286.3 MOS/KG (273-304); Potassium 4.4 MMOL/L (3.5-5.1)
[2020-09-08] MEDS ORDERED: BISACODYL 10 MG SUPP RECTAL PRN (07:04)
[2020-09-08] MEDS: carvediloL 6.25 MG TABLET PO SCH ×2 (08:05→21:15)
[2020-09-08] MEDS: PANTOPRAZOLE 40 MG TABLET PO SCH (08:20)
[2020-09-08] MEDS: ASCORBIC ACID 500 MG TABLET PO SCH ×2 (08:20→21:15)
[2020-09-08] MEDS: ATORVASTATIN 20 MG TABLET PO SCH (08:20)
[2020-09-08] MEDS: DOCUSATE SODIUM 100 MG CAPSULE PO SCH (08:20)
[2020-09-08] MEDS: OMEGA 3 ACID ETHYL ESTERS 1 GM CAPSULE PO SCH (08:20)
[2020-09-08] MEDS: MULTIVITAMIN (CENTRUM) TABLET PO SCH (08:21)
[2020-09-08] MEDS: MULTIVITAMIN (OCUVITE) TABLET PO SCH ×2 (08:21→21:15)
[2020-09-08 19:13] LABS: Hematocrit 24.7 VOL% (35.7-47.0); Hemoglobin 8.2 GM/DL (12.0-16.0)
[2020-09-09] MEDS: LACTATED RINGERS 1,000 ML IV SCH (05:39)
[2020-09-09 06:02] LABS: Basophils % 0.2 % (0.0-0.8); Eosinophils % 0.4 % (0.00-10.9); Hematocrit 20.7 VOL% (35.7-47.0); Hemoglobin 6.7 GM/DL (12.0-16.0); Immature Granulocytes % 0.4 %; Immature Granulocytes Absolute 0.02 #; Lymphocytes # 1.3 10*3/uL (1.4-4.0); Lymphocytes % 23.7 % (21.3-54.2); Mean Corpuscular HGB Conc 32.4 GM/DL (32-36); Mean Corpuscular Volume 89.2 FL (87-102); Mean Platelet Volume 11.1 FL (9.6-12.0); Monocytes % 12.1 % (1.7-12.7); Neutrophils % 63.2 % (38.7-73.9); Platelet Count 99 T/CUMM (130-400); Red Blood Count 2.32 MC/CUMM (3.8-5.5); Red Cell Distribution Width 14.2 % (9.3-17.3); White Blood Count 5.3 T/CUMM (4-12)
[2020-09-09 06:27] LABS: Hypochromasia 1+; Microcytosis 1+; Platelet Estimate Decreased
[2020-09-09] MEDS ORDERED: SODIUM CHLORIDE 0.9% 1,000 ML IV PRN (06:44)
[2020-09-09] MEDS ORDERED: FUROSEMIDE 20 MG/2 ML VIAL IV PRN (06:45)
[2020-09-09] MEDS: PANTOPRAZOLE 40 MG TABLET PO SCH (08:22)
[2020-09-09] MEDS: MULTIVITAMIN (CENTRUM) TABLET PO SCH (08:22)
[2020-09-09] MEDS: POLYETHYLENE GLYCOL POWDER 17 GM PACK PO PRN (08:22)
[2020-09-09] MEDS: ASCORBIC ACID 500 MG TABLET PO SCH ×2 (08:22→20:39)
[2020-09-09] MEDS: carvediloL 6.25 MG TABLET PO SCH ×2 (08:23→20:39)
[2020-09-09] MEDS: MULTIVITAMIN (OCUVITE) TABLET PO SCH ×2 (08:23→20:39)
[2020-09-09] MEDS: OMEGA 3 ACID ETHYL ESTERS 1 GM CAPSULE PO SCH (08:23)
[2020-09-09] MEDS: DOCUSATE SODIUM 100 MG CAPSULE PO SCH (08:23)
[2020-09-09] MEDS: ATORVASTATIN 20 MG TABLET PO SCH (08:23)
[2020-09-09 10:10] LABS: Hematocrit 20.8 VOL% (35.7-47.0); Hemoglobin 6.7 GM/DL (12.0-16.0)
[2020-09-09 17:44] LABS: Hematocrit 29.2 VOL% (35.7-47.0)
[2020-09-09 17:45] LABS: Hemoglobin 9.2 GM/DL (12.0-16.0)
[2020-09-10] MEDS ORDERED: ACETAMINOPHEN 325 MG TABLET PO PRN (00:08)
[2020-09-10 05:37] LABS: Basophils % 0.2 % (0.0-0.8); Eosinophils % 0.6 % (0.00-10.9); Hematocrit 25.7 VOL% (35.7-47.0); Hemoglobin 8.6 GM/DL (12.0-16.0); Immature Granulocytes % 0.4 %; Immature Granulocytes Absolute 0.02 #; Lymphocytes # 1.4 10*3/uL (1.4-4.0); Lymphocytes % 28.6 % (21.3-54.2); Mean Corpuscular HGB Conc 33.5 GM/DL (32-36); Mean Corpuscular Volume 87.7 FL (87-102); Mean Platelet Volume 10.8 FL (9.6-12.0); Monocytes % 10.2 % (1.7-12.7); Platelet Count 104 T/CUMM (130-400); Red Blood Count 2.93 MC/CUMM (3.8-5.5); Red Cell Distribution Width 13.9 % (9.3-17.3); White Blood Count 4.8 T/CUMM (4-12)
[2020-09-10 05:58] LABS: % Iron Saturation 15.2 % (18-50); Ferritin 42.3 ng/ml (8-252)
[2020-09-10] MEDS: MULTIVITAMIN (CENTRUM) TABLET PO SCH (08:00)
[2020-09-10] MEDS: DOCUSATE SODIUM 100 MG CAPSULE PO SCH (08:00)
[2020-09-10] MEDS: POLYETHYLENE GLYCOL POWDER 17 GM PACK PO PRN (08:00)
[2020-09-10] MEDS: OMEGA 3 ACID ETHYL ESTERS 1 GM CAPSULE PO SCH (08:00)
[2020-09-10] MEDS: ASCORBIC ACID 500 MG TABLET PO SCH ×2 (08:01→21:21)
[2020-09-10] MEDS: MULTIVITAMIN (OCUVITE) TABLET PO SCH ×2 (08:01→21:21)
[2020-09-10] MEDS: PANTOPRAZOLE 40 MG TABLET PO SCH (08:01)
[2020-09-10] MEDS: carvediloL 6.25 MG TABLET PO SCH ×2 (08:01→21:21)
[2020-09-10] MEDS: ATORVASTATIN 20 MG TABLET PO SCH (08:01)
[2020-09-10] MEDS: ONDANSETRON 4 MG/2 ML VIAL IV PRN (11:40)
[2020-09-11] MEDS ORDERED: SODIUM PHOSPHATE ENEMA 133 ML BOTTLE RECTAL ONE (08:32)
[2020-09-11 11:06] LABS: Hematocrit 29.2 VOL% (35.7-47.0); Hemoglobin 9.4 GM/DL (12.0-16.0)
[2020-09-11 11:09] VITALS: BP 122/59
[2020-09-11] MEDS: MULTIVITAMIN (OCUVITE) TABLET PO SCH (11:35)
[2020-09-11] MEDS: DOCUSATE SODIUM 100 MG CAPSULE PO SCH (11:35)
[2020-09-11] MEDS: MULTIVITAMIN (CENTRUM) TABLET PO SCH (11:35)
[2020-09-11] MEDS: carvediloL 6.25 MG TABLET PO SCH (11:35)
[2020-09-11] MEDS: OMEGA 3 ACID ETHYL ESTERS 1 GM CAPSULE PO SCH (11:35)
[2020-09-11] MEDS: ATORVASTATIN 20 MG TABLET PO SCH (11:35)
[2020-09-11] MEDS: PANTOPRAZOLE 40 MG TABLET PO SCH (11:36)
[2020-09-11] MEDS: ASCORBIC ACID 500 MG TABLET PO SCH (11:36)
[2020-09-14 08:28] LABS: Total Protein (Chem) 5.7 G/DL (6.4-8.3)
[2020-09-14 10:42] LABS: Albumin (SPE) 3.3 G/DL (3.2-5.3); Albumin (SPE) Rel % 57.5 %; Alpha 1 (SPE) 0.3 G/DL (0.1-0.4); Alpha 1 (SPE) Rel % 5.6 %; Alpha 2 (SPE) 0.8 G/DL (0.4-1.0); Alpha 2 (SPE) Rel % 13.8 %; Beta (SPE) 0.7 G/DL (0.5-1.1); Beta (SPE) Rel % 12.5 %; Gamma (SPE) 0.6 G/DL (0.7-1.7); Gamma (SPE) Rel % 10.6 %
== END 2020-09-11 13:20 | disposition swing bed (61) | DRG 467 ==
LOC: N.OR 05:45 → N.SDSINP 05:47 → EDSTATUS 12:30 → N.3E 13:20
PROVIDERS: ADMIT Orthopaedic Surgery; ATTEND Orthopaedic Surgery